=== PATIENT | male | born 1965 | race Caucasian/White ===

== ENCOUNTER → 2020-10-18 | Outpatient (REF) | payer BC | LOC: M PLALAB 16:56 | PROVIDERS: ATTEND Nurse Practitioner Family | DX: Z12.5 Encounter for screening for malignant neoplasm of prostate (principal) ==

== ENCOUNTER → 2020-10-18 | Outpatient (CLI) | payer BC ==
--- NOTE | 2020-10-19 10:12 | REPPI ---
INDICATION: N20.0 KIDNEY STONE COMPARISON: None. TECHNIQUE: Supine view of the abdomen and pelvis. FINDINGS: Evaluation for urinary tract calcifications is limited although bilateral intrarenal calculi are suspected measuring up to approximately 4.5 mm in the midpole right kidney and 4.5 mm in the lower pole left kidney. Bowel gas pattern is nonspecific. Skeletal structures demonstrate age-related degenerative changes. IMPRESSION: Findings suggesting bilateral nonobstructing nephroliths. <Electronically signed by Navarro De La Torre > 10/19/20 [id number]
== END ==
LOC: M PLAIMG 14:23
PROVIDERS: ATTEND Nurse Practitioner Family
DX: N20.0 Calculus of kidney (principal)